=== PATIENT | male | born 1950 | race Caucasian/White ===

== ENCOUNTER → 2024-03-22 | Outpatient (CLI) | payer OTHER ==
[2024-03-22 08:56] LABS: INR 0.99 (0.85-1.15); PROTHROMBIN TIME 10.7 SEC (9.6-11.6)
[2024-03-22 08:57] LABS: PARTIAL THROMBOPLASTIN TIME 28.7 SEC (26.3-35.5)
--- NOTE | 2024-03-22 09:45 | NUR ---
U/S GD LT NECK BX PROCEDURE PERFORMED BY DR Cari ANDREWS. PUNCTURE SITE LT NECK AND PATIENT TOLERATED PROCEDURE WELL. SPECIMEN X 6 COLLECTED AND SENT TO LAB. END OF PROCEDURE AT 0910. BIOPSY NEEDLE REMOVED AND DRESSING APPLIED. NO BLEEDING NOTED. DISCHARGE INSTRUCTIONS GIVEN TO PATIENT AND VERBALIZED UNDERSTANDING. DISCHARGED VIA AMBULATION AT 0945 AAO X3 WITH NO C/O PAIN.
--- NOTE | 2024-03-22 09:48 | HMCIMG ---
[facility] IR HISTORY: Neck mass COMPARISON: None TECHNIQUE: Informed consent was obtained. Risks and benefits were explained to the patient. A timeout was performed. Patient was prepped and draped in a sterile fashion. Local anesthetics was given as required. Under ultrasound guidance, left neck mass was localized. Ultrasound guidance core biopsy was performed with 20-gauge biopsy gun with coaxial arrangement. FINDINGS: Total of 8 samples were obtained. Patient tolerated procedure without complication. Patient left the department in good condition. IMPRESSION: 1. Uncomplicated ultrasound guidance left neck mass core biopsy.
== END | disposition home or self-care (01) ==
LOC: RAH 10:00
PROVIDERS: ATTEND Student in an Organized Health Care Education/Training Program
DX: R22.1 Localized swelling, mass and lump, neck (principal); C44.42 Squamous cell carcinoma of skin of scalp and neck; I10 Essential (primary) hypertension; Z79.01 Long term (current) use of anticoagulants; Z79.899 Other long term (current) drug therapy
CPT/HCPCS: 20206; 36415; 38505; 76942; 85610; 85730; 88307; 88341; 88342; 88360

== ENCOUNTER → 2024-08-10 | Emergency (ER) | payer OTHER, MEDICARE ==
[~2024-08-10] VITALS: Ht 167.6 cm; Wt 73.5 kg
[~2024-08-10] MED LIST: TAMS-55 PO
--- NOTE | 2024-08-10 21:07 | ERN ---
ED Note History of Present Illness Stated Complaint: PEG BAG LEAKING Time Seen by MD: 20:54 Dictation: PATIENT IS A 74-YEAR-OLD MALE COMING IN TODAY WITH COMPLAINTS OF LEAKING AROUND HIS PEG TUBE ONSET TODAY. HE STATES THAT HE HAS HAD A COUGH DUE TO THRUSH FOR TWO WEEKS IN HIS BEING CURRENTLY TREATED BY HIS PHYSICIAN WITH NYSTATIN. HE THINKS IT MAY HAVE BEEN THE EFFORT OF HIS COUGHING THIS CAUSED IN THE LEAKING AROUND THE PEG. HE STATES THIS PEG TUBE WAS PLACED BY DR. GARCIA AT [facility] ON 07/26/2024. HE HAD NOT HAD ANY TROUBLE WITH THE IT UNTIL TODAY WHEN IT STARTED LEAKING. Allergies: Coded Allergies: No Known Allergies (Unverified Allergy, Unknown, 07/23/24) Home Meds Reported Medications Tamsulosin HCl (Flomax) 0.4 Mg Cap.er.24h, 1 CAP PO DAILY for 30 Days, #30 CAP 0 Refills 07/23/24 Past Medical History RN Note Reviewed/Agreed w/PFSH: Yes Review of System Dictation CONSTITUTIONAL: NEGATIVE EXCEPT FOR HPI HEAD/FACE: NEGATIVE EXCEPT FOR HPI EENT: NEGATIVE EXCEPT FOR HPI RESPIRATORY: NEGATIVE EXCEPT FOR HPI GASTROINTESTINAL/ABDOMINAL: NEGATIVE EXCEPT FOR HPI LEAKING PEG TUBE GENITOURINARY: NEGATIVE EXCEPT FOR HPI MUSCULOSKELETAL: NEGATIVE EXCEPT FOR HPI INTEGUMENTARY: NEGATIVE EXCEPT FOR HPI NEUROLOGICAL/PSYCH: NEGATIVE EXCEPT FOR HPI HEMATOLOGIC/LYMPHATIC: NEGATIVE EXCEPT FOR HPI ALL SYSTEMS NEGATIVE, EXCEPT NOTED ABOVE. 13 POINT REVIEW OF SYSTEMS ASSESSED AND ALL NEGATIVE EXCEPT FOR ABOVE. Initial Vital Sign VS Vital Signs Date Time Temp Pulse Resp B/P (MAP) Pulse Ox O2 Delivery O2 Flow Rate FiO2 08/10/24 20:51 98.2 70 20 150/88 98 Room Air 08/10/24 21:35 0 21 Physical Exam Dictation VITAL SIGNS REVIEWED GENERAL APPEARANCE: ALERT, ORIENTED X 3, NO ACUTE DISTRESS, WELL DEVELOPED, NOURISHED. HEAD AND FACE: NON-TRAUMATIC. EYES: PERRL, PINK CONJUNCTIVAS, EYELID NO TRAUMA, ANTERIOR CHAMBER WITH ARCUS SENILIS. EARS: PINNAS INTACT AND NO SIGNS OF TRAUMA OR ERYTHEMA EAR CANALS CLEAR AND NO DISCHARGE TM NO ERYTHEMA NOSE: NO DISCHARGE, NO BLEEDING. OROPHARYNX: MOUTH NORMAL, TONGUE PINK, PHARYNX CLEAR,NO ERYTHEMA, TONSILS NO EXUDATES, NO ABSCESSES NOTED, MUCOUS MEMBRANE MOIST NECK: SUPPLE, NON-TENDER, NO THYROMEGALY, NO MASSES, NO JVD, NO BRUITS TRACHEOSTOMY IN PLACE BREAST:DEFERRED CHEST:NO TENDERNESS, NO CREPITUS, NO PARADOXICAL MOVEMENT, NO RETRACTIONS LUNGS:CLEAR, WELL-VENTILATED, SYMMETRIC, NO RALES, NO WHEEZING, NO RHONCHI, NO STRIDOR, GOOD BREATH SOUNDS BILATERALLY HEART: REGULAR RATE, REGULAR RHYTHM, NO MURMUR, NO GALLOPS VASCULAR: NO PERIPHERAL EDEMA, ABDOMEN: SOFT, POSITIVE BOWEL SOUNDS, NONDISTENDED, NO GUARDING, NONTENDER, NO REBOUND, NO MASSES NO HEPATOMEGALY, NO SPLENOMEGALY, NO PHILLIPS'S SIGN, NO HERNIAS. TWENTY MAC[place]IAN TRACTION REDUCIBLE PEG TUBE IN PLACE LEAKING. POSITION VERIFIED WITH AIR BOLUS AND AUSCULTATION. ALSO ASPIRATION OF GI CONTENTS RECTAL: DEFERRED GENITAL: DEFERRED NEUROLOGICAL: NORMAL SPEECH, MOTOR FUNCTION INTACT, SENSORY FUNCTION INTACT MUSCULOSKELETAL: NECK NONTENDER, FULL RANGE OF MOTION, BACK NONTENDER, FULL RANGE OF MOTION, EXTREMITIES: NONTENDER, FULL RANGE OF MOTION SKIN: COLOR PINK, DRY, NO TURGOR, NO RASH, NO LACERATIONS, NO ABRASIONS, NO CONTUSIONS. LYMPHATIC: DEFERRED Results (Laboratory/Radiology) Labs Reviewed?: Yes ED Course ED Course Vital Signs Date Time Temp Pulse Resp B/P (MAP) Pulse Ox O2 Delivery O2 Flow Rate FiO2 08/10/24 21:35 98.1 87 16 142/77 94 Room Air* 0 21 08/10/24 20:51 98.2 70 20 150/88 98 Room Air 2145/ /GI PAGED 5/DR JORDAN REPAGED. NO ANSWER 2211/WITH , HE SAID THERE WAS NO NEED FOR EMERGENT REPLACEMENT AT THIS TIME HE SAID IT TUBE IS IN PLACE DISCHARGE PATIENT HOME AND HAVE HIM CONTINUE TO FEET IT GO TO [facility] OFFICE ON TUESDAY FOR REPLACEMENT. SPOKE WITH PATIENT AND HE AGREED Medical Decision Making MDM MEDICAL DECISION-MAKING BASED ON PICC PLACEMENT VERIFICATION SPOKE WITH [facility] HOST WE WILL SEND PATIENT HOME TO CONTINUE FEEDINGS OF HIS PEG TUBE FOLLOW UP IN THE OFFICE AT [facility] ON TUESDAY WITHOUT FAIL FOR MANAGEMENT DX & DISP Disposition: Discharge Departure Impression: Primary Impression: Leaking percutaneous endoscopic gastrostomy (PEG) tube Condition: Stable Additional Instructions: FOLLOW-UP WITH PRIMARY CARE PROVIDER IN 1 TO 2 DAYS. TAKE MEDICATIONS DIRECTED HERE IN THE EMERGENCY ROOM. OKAY TO CONTINUE HOME MEDICATIONS UNLESS OTHERWISE DISCUSSED DURING YOUR VISIT IN THE EMERGENCY ROOM TODAY. RETURN TO YOUR NEAREST EMERGENCY ROOM IF SYMPTOMS WORSEN OR IF THERE IS NO IMPROVEMENT. CALL 911 IF YOU NEED IMMEDIATE ASSISTANCE. TAKE TYLENOL OR MOTRIN [id number] NEEDED AND IF NO CONTRAINDICATIONS ARE PRESENT. INCREASE ORAL HYDRATION. A WOUND CULTURE OR URINE CULTURE WAS ORDERED HERE IN THE EMERGENCY ROOM DEPARTMENT PLEASE FOLLOW-UP WITH PRIMARY CARE PROVIDER AND ADVISE THEM TO GET REPEAT PORTS FROM OUR FACILITY. IF YOU HAD ANY HOLA WRAP/SPLINTS THAT WERE APPLIED HERE, PLEASE DO NOT REMOVE THEM UNTIL YOU SEE YOUR PRIMARY CARE OR SPECIALTY. CONTINUE TO FEED YOUR PEG TUBE. FOLLOW UP WITH [facility] ON TUESDAY WITHOUT FAIL FOR MANAGEMENT. RETURN TO THE EMERGENCY ROOM IF PEG CONTINUES TO LEAK OVER THE WEEKEND. Referrals: SELF,REFERRAL (PCP) JAVI GARCIA MD Time of Disposition: 22:19 I have reviewed the case, and I agree with, Diagnosis and Plan SARA WOODSON NP Aug 10, 2024 21:07
[2024-08-10 21:35] VITALS: TEMP 98.1
[2024-08-10 22:30] VITALS: BP 141/76; PULSE 88; RESP 16; O2SAT 94
--- NOTE | 2024-08-10 22:34 | NUR ---
fenestrated gauze and medipore tape used to aid with leak around G-tube, patient educated on monitoring any signs of leak from G-tube as well as following up with [facility] on tuesday. patient discharged with pertinent paperwork, personal belongings, and wound care supplies.
== END ==
LOC: EDH 20:49
DX: T85.9XXA Unspecified complication of internal prosthetic device, implant and graft, initial encounter (principal); Y82.8 Other medical devices associated with adverse incidents; Y92.89 Other specified places as the place of occurrence of the external cause
CPT/HCPCS: 99282

== ENCOUNTER 2024-08-15 05:50 | Day surgery (SDC) | payer OTHER ==
[~2024-08-15] VITALS: Ht 167.6 cm; Wt 72.1 kg
[2024-08-15] VITALS (10 sets, daily range): BP systolic 106–127; BP diastolic 62–90; PULSE 62–86; RESP 15–17; TEMP 97.2–97.7
[2024-08-15] MEDS ORDERED: ONDA-105 PO (06:16)
[2024-08-15] MEDS ORDERED: FLUC200T96 PO (06:16)
[2024-08-15] MEDS ORDERED: CELE-146 PO (06:16)
[2024-08-15] MEDS ORDERED: NYST15OI4 TP (06:16)
[2024-08-15] MEDS: 0.9%NACL 1000ML 1,000 ML IV ONE (06:18)
[2024-08-15] MEDS ORDERED: proPOFol 10 MG/ML 20ML VIAL IV ONE ×2 (07:24→07:48)
[2024-08-15] MEDS ORDERED: LIDOCAINE HCL 1% 20 ML VIAL ONE (07:24)
[2024-08-15] MEDS ORDERED: ceFAZolin SODIUM 1 GM VIAL ONE (07:49)
== END 2024-08-15 09:08 | disposition home or self-care (01) ==
LOC: ENDO 05:50 → DAH 05:50 → ENDO 09:08
PROVIDERS: ATTEND Internal Medicine Gastroenterology
DX: R13.12 Dysphagia, oropharyngeal phase (principal); K29.70 Gastritis, unspecified, without bleeding; K94.20 Gastrostomy complication, unspecified; K94.23 Gastrostomy malfunction; I10 Essential (primary) hypertension; C08.0 Malignant neoplasm of submandibular gland; T18.9XXA Foreign body of alimentary tract, part unspecified, initial encounter; Z79.899 Other long term (current) drug therapy; Z85.89 Personal history of malignant neoplasm of other organs and systems; Z98.890 Other specified postprocedural states
CPT/HCPCS: 43246; 43239; J0690; J7030; J2704 ×2; A4620; A4215; J3490

== ENCOUNTER 2024-08-24 09:51 | Day surgery (SDC) | payer OTHER ==
[~2024-08-24] VITALS: Ht 154.9 cm; Wt 67.6 kg
[2024-08-24] VITALS (13 sets, daily range): BP systolic 129–150; BP diastolic 63–89; PULSE 79–89; RESP 13–19; TEMP 96.7–97.6
[~2024-08-24 09:51] MED LIST changes: +CELE-146 PO; +FLUC200T96 PO; +NYST15OI4 TP; +ONDA-105 PO; -TAMS-55 PO
[2024-08-24] MEDS: 0.9%NACL 1000ML 1,000 ML IV ONE (10:29)
[2024-08-24] MEDS ORDERED: proPOFol 10 MG/ML 20ML VIAL IV ONE (12:15)
--- NOTE | 2024-08-24 14:01 | NUR ---
Full and complete discharge instructions given to Patient and Family both verbally and in writing. Explained GI procedure precautions and follow up. Wound care to be set up by [facility]. abdominal binder intact. Pt in a hurry to get to next appointment. Daughter at side appearing supportive. All questions answered. PIV removed with catheter tip intact. Home with Daughter W/C to POV.
== END 2024-08-24 14:04 | disposition home or self-care (01) ==
LOC: ENDO 09:51 → DAH 09:51 → ENDO 14:04
PROVIDERS: ATTEND Internal Medicine Gastroenterology
DX: K94.20 Gastrostomy complication, unspecified (principal); K31.6 Fistula of stomach and duodenum; I10 Essential (primary) hypertension; R13.12 Dysphagia, oropharyngeal phase; C08.0 Malignant neoplasm of submandibular gland; Z88.1 Allergy status to other antibiotic agents; Z88.8 Allergy status to other drugs, medicaments and biological substances; Z79.899 Other long term (current) drug therapy
CPT/HCPCS: 43235; J7030; J2704; A4649; A4620; A4215 ×2; A4223; A4222; A4221; A4663; A4606; J3490